=== PATIENT | female | born 1950 | race Caucasian/White ===

== ENCOUNTER 2017-03-04 11:34 | Outpatient (CLI) | payer OTHER ==
--- NOTE | 2017-03-11 06:59 | Mammography Report ---
EXAM: Digital bilateral screening mammogram 03/04/2017. CLINICAL INDICATION: A 66-year-old for screening. COMPARISON: 10/2015, 05/2014. FINDINGS: The breasts again demonstrate scattered fibroglandular densities bilaterally. Punctate, typically benign calcifications are present. No suspicious masses, clustered microcalcifications or regions of architectural distortion are identified. IMPRESSION: Benign findings. RECOMMENDATIONS: Routine annual screening unless otherwise clinically indicated. BIRADS category 2 - Benign findings. STANDARD QUALIFYING STATEMENTS 1. This examination was reviewed with the aid of Computed Aided Detection (CAD). 2. A negative x-ray report should not delay biopsy if a dominant or clinically suspicious mass is present. More than 5% of cancers are not identified by x-ray. 3. Dense breasts may obscure an underlying neoplasm. TD: 03/05/2017 20:01 GULSHAN
== END 2017-03-04 11:35 | disposition home or self-care (01) ==
LOC: DI.N 11:34
PROVIDERS: ATTEND Family Medicine
DX: Z12.31 Encounter for screening mammogram for malignant neoplasm of breast (principal)
CPT/HCPCS: 77067

== ENCOUNTER 2018-01-26 15:30 | Outpatient (CLI) | payer MEDICARE, OTHER | END 2018-01-26 23:59 | disposition home or self-care (01) | LOC: LAB.R 15:30 | PROVIDERS: ATTEND Physician Assistant Medical | DX: R30.0 Dysuria (principal) | CPT/HCPCS: 87077; 87086; 87181 ==

== ENCOUNTER 2018-07-06 13:37 | Outpatient (CLI) | payer MEDICARE, OTHER ==
--- NOTE | 2018-07-06 14:57 | Mammography Report ---
Reason: SCREENING MAMMO Procedure Date: 07/06/2018 Accession Number: [id number] / [id number] Procedure: MGN - Screening Mammo Dig Bilat CPT Code: FULL RESULT: EXAM: Screening Mammo Dig Bilat DATE: 07/06/2018 2:00 PM CLINICAL HISTORY: Screening examination. TECHNIQUE: (B) - Bilateral CC and MLO views were obtained. COMPARISON: 06/25/2016, 05/18/2013 PARENCHYMAL PATTERN: (A) - The breasts demonstrate scattered fibroglandular densities bilaterally. FINDINGS: There are no suspicious masses, calcifications, or areas of distortion. Stable long-standing small sharply marginated benign-appearing mass posterior central right breast of no clinical significance. IMPRESSION: Benign findings. BI-RADS category 2. RECOMMENDATION: (ANNUAL) - Recommend routine annual screening mammography. BI-RADS CATEGORY: (2) - Benign Findings. STANDARD QUALIFYING STATEMENTS: 1. This examination was reviewed with the aid of Computer-Aided Detection (CAD). 2. A negative or benign imaging report should not preclude biopsy if clinically suspicious findings are present. 3. Dense breasts may obscure an underlying neoplasm. 4. This examination was reviewed without the aid of 3D breast imaging (tomosynthesis).
== END 2018-07-06 13:38 | disposition home or self-care (01) ==
LOC: DI.N 13:37
DX: Z12.31 Encounter for screening mammogram for malignant neoplasm of breast (principal)
CPT/HCPCS: 77067

== ENCOUNTER 2019-03-09 08:00 | Outpatient (CLI) | payer MEDICARE, OTHER | END 2019-03-09 23:59 | disposition home or self-care (01) | LOC: LAB.WCP 08:00 | PROVIDERS: ATTEND Physician Assistant | DX: R35.0 Frequency of micturition (principal) | CPT/HCPCS: 81002 ==

== ENCOUNTER 2019-03-09 13:30 | Outpatient (CLI) | payer MEDICARE, OTHER | END 2019-03-09 23:59 | disposition home or self-care (01) | LOC: LAB.R 13:30 | PROVIDERS: ATTEND Physician Assistant | DX: R35.0 Frequency of micturition (principal) | CPT/HCPCS: 87086; 87181 ==

== ENCOUNTER 2019-03-24 15:30 | Outpatient (CLI) | payer MEDICARE, OTHER | END 2019-03-24 23:59 | disposition home or self-care (01) | LOC: LAB.R 15:30 | PROVIDERS: ATTEND Physician Assistant Medical | DX: R35.0 Frequency of micturition (principal) | CPT/HCPCS: 87086 ==

== ENCOUNTER → 2019-10-13 | Outpatient (CLI) | payer MEDICARE, OTHER ==
[2019-10-13 12:05] LABS: BASOPHILS # (AUTO) 0.1 10^3/uL (0.0-0.1); BASOPHILS % (AUTO) 0.9 %; EOSINOPHILS # (AUTO) 0.1 10^3/uL (0.0-0.7); EOSINOPHILS % (AUTO) 2.2 %; HGB - HEMOGLOBIN 13.8 g/dL (12.0-16.0); MEAN CORPUSCULAR HEMOGLOBIN 31.8 pg (27.0-31.0); MEAN CORPUSCULAR HGB CONC 32.8 g/dL (32.0-36.0); MONOCYTES # (AUTO) 0.5 10^3/uL (0.0-1.0); NEUTROPHILS # (AUTO) 3.7 10^3/uL (1.5-6.6); NEUTROPHILS % (AUTO) 57.6 %; PLT - PLATELET COUNT 210 10^3/uL (130-450); RED BLOOD COUNT 4.34 10^6/uL (4.20-5.40); RED CELL DISTRIBUTION WIDTH 11.9 % (12.0-15.0); WHITE BLOOD COUNT 6.5 x10^3/uL (4.8-10.8)
[2019-10-13 12:41] LABS: ALBUMIN 4.7 g/dL (3.2-5.5); ALBUMIN/GLOBULIN RATIO 1.4 (1.0-2.2); ALKALINE PHOSPHATASE 56 IU/L (42-121); ALT ALANINE AMINOTRANSFERASE 25 IU/L (10-60); AST ASPARTATE AMINOTRANSFERASE 23 IU/L (10-42); BILIRUBIN,TOTAL 1.1 mg/dL (0.2-1.0); BUN - BLOOD UREA NITROGEN 23 mg/dL (6-20); CALCIUM 9.2 mg/dL (8.5-10.3); CARBON DIOXIDE - CO2 26 mmol/L (21-32); CHLORIDE 105 mmol/L (101-111); CHOL/HDL RATIO 3.9 (<4.4); CHOLESTEROL 216 mg/dL; CREATININE 0.8 mg/dL (0.4-1.0); GLUCOSE 104 mg/dL (70-100); HDL CHOLESTEROL 56 mg/dL; LDL CHOLESTEROL,CALCULATED 145 mg/dL; LDL/HDL RATIO 2.6 (<4.4); SODIUM 138 mmol/L (135-145); VLDL CHOLESTEROL 15 mg/dL
== END ==
LOC: LAB.WCP 07:44
PROVIDERS: ATTEND Physician Assistant Medical
DX: R73.01 Impaired fasting glucose (principal); E78.5 Hyperlipidemia, unspecified; R03.0 Elevated blood-pressure reading, without diagnosis of hypertension; F41.9 Anxiety disorder, unspecified; E78.1 Pure hyperglyceridemia; E03.9 Hypothyroidism, unspecified
CPT/HCPCS: 36415; 80053; 80061; 81599; 83036; 83721; 84443; 85025

== ENCOUNTER 2020-07-20 08:00 | Outpatient (CLI) | payer MEDICARE, OTHER ==
[2020-07-20 13:02] LABS: ALBUMIN 4.5 g/dL (3.2-5.5); ALBUMIN/GLOBULIN RATIO 1.6 (1.0-2.2); ALKALINE PHOSPHATASE 63 IU/L (42-121); ALT ALANINE AMINOTRANSFERASE 24 IU/L (10-60); AST ASPARTATE AMINOTRANSFERASE 25 IU/L (10-42); BILIRUBIN,TOTAL 1.2 mg/dL (0.2-1.0); BUN - BLOOD UREA NITROGEN 15 mg/dL (6-20); CALCIUM 9.4 mg/dL (8.5-10.3); CARBON DIOXIDE - CO2 27 mmol/L (21-32); CHLORIDE 103 mmol/L (101-111); CHOL/HDL RATIO 4.3 (<4.4); CHOLESTEROL 195 mg/dL; CREATININE 0.8 mg/dL (0.4-1.0); GFR - MDRD 72 (>89); GLUCOSE 105 mg/dL (70-100); HDL CHOLESTEROL 45 mg/dL; LDL CHOLESTEROL,CALCULATED 121 mg/dL; LDL/HDL RATIO 2.7 (<4.4); POTASSIUM 3.9 mmol/L (3.5-5.0); SODIUM 138 mmol/L (135-145); TOTAL PROTEIN 7.3 g/dL (6.7-8.2); TRIGLYCERIDES 143 mg/dL; VLDL CHOLESTEROL 29 mg/dL
[2020-07-20 13:31] LABS: ESTIMATED AVERAGE GLUCOSE 120 mg/dL (70-100); HEMOGLOBIN A1c% 5.8 % (4.27-6.07)
== END 2020-07-20 23:59 | disposition home or self-care (01) ==
LOC: LAB.WCP 08:00
PROVIDERS: ATTEND Physician Assistant Medical
DX: E78.5 Hyperlipidemia, unspecified (principal); R73.01 Impaired fasting glucose
CPT/HCPCS: 36415; 80053; 80061; 83036; 83721

== ENCOUNTER 2020-10-01 14:11 | Outpatient (CLI) | payer MEDICARE, OTHER ==
--- NOTE | 2020-10-02 11:43 | Mammography Report ---
BILATERAL DIGITAL SCREENING MAMMOGRAM 3D/2D: 10/01/2020 CLINICAL: Routine screening. Comparison is made to exams dated: 07/06/2018 mammogram, 03/04/2017 mammogram, 11/15/2015 mammogram, mammogram - [facility], 03/03/2012 ultrasound, and 02/20/2012 ultrasound - [facility]. There are scattered fibroglandular elements in both breasts. There are benign calcifications in both breasts. No significant masses, calcifications, or other findings are seen in either breast. There has been no significant interval change. IMPRESSION: BENIGN There is no mammographic evidence of malignancy. A 1 year screening mammogram is recommended. This exam was interpreted at Station ID: [id number]. NOTE: For mammograms, a report in lay terms will be sent to the patient. Approximately 15% of breast malignancies will not be visualized mammographically. In the management of a palpable breast mass, a negative mammogram must not discourage biopsy of a clinically suspicious lesion. Electronically Signed By: Jordan Stevens M.D. ddabdiel/[email or web address]:10/01/2020 15:43:21 ACR BI-RADS Category 2: Benign Finding(s) 3342F PARENCHYMAL PATTERN: (A) - The breast(s) demonstrate(s) scattered fibroglandular densities. BI-RADS CATEGORY: (2) - 2 RECOMMENDATION: (ANNUAL) - Recommend routine annual screening mammography. [id number] 1 year screening LATERALITY: (B)
== END 2020-10-01 14:12 | disposition home or self-care (01) ==
LOC: DI 14:11
DX: Z12.31 Encounter for screening mammogram for malignant neoplasm of breast (principal)

== ENCOUNTER 2020-10-01 14:16 | Outpatient (CLI) | payer MEDICARE, OTHER ==
--- NOTE | 2020-10-12 08:42 | DEXA Report ---
PROCEDURE: Dexa Spine and/or Hip INDICATIONS: POST MENOPAUSAL TECHNIQUE: Dual energy x-ray absorptiometry (DXA) was performed on a Fastgen System. Regions measur ed are the AP Spine, femoral neck, and if needed forearm. COMPARISON: None. FINDINGS: Lumbar Spine: Bone Mineral Density 1.149 g/cm/cm,T score -0.3, normal Left Hip: Bone Mineral Density 0.832 g/cm/cm,T score -1.4, osteopenia Left Femoral Neck: Bone Mineral Density 0.819 g/cm/cm, T score -1.6, osteopenia (T score greater or equal to -1.0: NORMAL) (T score from -1.1 to -2.4: OSTEOPENIA) (T score less than or equal to -2.5 to: OSTEOPOROSIS) Impression: Osteopenia. Patients with diagnosis of osteoporosis or osteopenia should have regular bone mineral density assess ment. For those eligible for Medicare, routine testing is allowed once every 2 years. Testing frequ ency can be increased for patients who have rapidly progressing disease or for those who are receivin g medical therapy to restore bone mass. Reviewed by: Brit Polanco MD, PhD on 10/01/2020 4:42 PM PDT Approved by: Brit Polanco MD, PhD on 10/01/2020 4:42 PM PDT Station ID: [id number]
== END 2020-10-01 14:17 | disposition home or self-care (01) ==
LOC: DI 14:16
PROVIDERS: ATTEND Physician Assistant Medical
DX: Z78.0 Asymptomatic menopausal state (principal); M85.88 Other specified disorders of bone density and structure, other site

== ENCOUNTER 2022-03-04 11:00 | Outpatient (CLI) | payer MEDICARE, OTHER ==
--- NOTE | 2022-03-05 11:54 | Mammography Report ---
UNILATERAL RIGHT DIGITAL DIAGNOSTIC MAMMOGRAM 3D/2D WITH MEDIOLATERAL OBLIQUE SPOT COMPRESSION: 03/04 CLINICAL: Patient returns today to evaluate a focal asymmetry in the right breast. Comparison is made to exams dated: 02/04/2022 mammogram, 10/01/2020 mammogram, and 07/06/2018 mammogra m - [facility]. There are scattered areas of fibroglandular density in the right breast (category b / 25%-50% glandul ar tissue). There are various sized benign oval shaped masses with a circumscribed margin in the right breast. There is a 1.2 cm oval mass in the right breast at 7 o'clock middle depth 1 cm from the nipple. This is seen in additional views. This is increased in size coma to 2020. No other significant masses or calcifications are seen in the breast. IMPRESSION: INCOMPLETE: NEEDS ADDITIONAL IMAGING EVALUATION The 1.2 cm oval mass in the right breast most likely is a cyst and is indeterminate. An ultrasound i s recommended. There are various sized benign oval shaped masses with a circumscribed margin in the right breast. T his is also seen in the left breast on prior imaging. Based on the Tyrer Cuzick model (a risk assessment model) the patients lifetime risk is 5.0% and her 10 year risk is 3.0%. According to the ACR, ACS, and NCCN guidelines, an annual breast MRI exam nori g with mammogram is recommended if the patients lifetime risk is 20% or greater. This exam was interpreted at Station ID: [id number]. NOTE: For mammograms, a report in lay terms will be sent to the patient. Approximately 15% of breast malignancies will not be visualized mammographically. In the management of a palpable breast mass, a negative mammogram must not discourage biopsy of a clinically suspicious lesion. Electronically Signed By: Juan Carlos Mckeon M.D. lc/:03/04/2022 12:13:05 ACR BI-RADS Category 0: Incomplete 3340F PARENCHYMAL PATTERN: (A) - The breast(s) demonstrate(s) scattered fibroglandular densities. BI-RADS CATEGORY: (0) - 0 Ultrasound [id number] Immediate follow-up LATERALITY: (B)
--- NOTE | 2022-03-05 11:54 | Ultrasound Report ---
LIMITED ULTRASOUND OF RIGHT BREAST: 03/04/2022 CLINICAL: Patient returns today to evaluate focal asymmetries in the right breast. Comparison is made to exams dated: 03/04/2022 mammogram, 02/04/2022 mammogram, 10/01/2020 mammogram, 07/06/2018 mammogram, 03/04/2017 mammogram, and 11/15/2015 mammogram - [facility]. Color flow and real-time ultrasound of the right breast 6-7 o'clock region were performed. Aguilar scal e images of the real-time examination were reviewed. There are various sized benign oval shaped masses with a circumscribed margin in the right breast. There is a benign 1.1 cm x 1.1 cm x 0.6 cm cyst in the right breast at 7 o'clock middle depth 1 cm fr om the nipple, corresponding to mammogram. Other smaller cysts are present. IMPRESSION: BENIGN There is no sonographic evidence of malignancy. The 1.1 cm x 1.1 cm x 0.6 cm cyst in the right breast is benign. Return to annual mammogram screening schedule is recommended. This exam was interpreted at Station ID: [id number]. Electronically Signed By: Juan Carlos Mckeon M.D. lc/:03/04/2022 12:19:24 Ultrasound BI-RADS: 2 Benign BI-RADS CATEGORY: (2) - 2 Mammogram [id number] return to screening LATERALITY: (B)
== END 2022-03-04 11:01 | disposition home or self-care (01) ==
LOC: DI 11:00
PROVIDERS: ATTEND Family Medicine
DX: R92.8 Other abnormal and inconclusive findings on diagnostic imaging of breast (principal); N60.01 Solitary cyst of right breast

== ENCOUNTER 2022-03-25 10:18 | Outpatient (CLI) | payer MEDICARE, OTHER ==
[2022-03-25 12:57] LABS: CALCIUM 9.2 mg/dL (8.5-10.3); CREATININE 0.7 mg/dL (0.4-1.0); POTASSIUM 3.9 mmol/L (3.5-5.0)
[2022-03-25 14:05] LABS: BILIRUBIN,URINE NEGATIVE (NEGATIVE); GLUCOSE, URINE (UA) NEGATIVE (NEGATIVE); KETONES,URINE (UA) NEGATIVE (NEGATIVE); LEUKOCYTE ESTERASE, URINE NEGATIVE (NEGATIVE); NITRITE,URINE NEGATIVE (NEGATIVE); OCCULT BLOOD,URINE TRACE-INTA (NEGATIVE); PROTEIN,URINE NEGATIVE (NEGATIVE); UROBILINOGEN,URINE 0.2 (NORMAL) E.U./dL (NORMAL)
[2022-03-25 14:06] LABS: CLARITY,URINE CLEAR (CLEAR)
[2022-03-25 14:33] LABS: BACTERIA,URINE Few /HPF (None Seen); RBC,URINE 0-5 /HPF (0-5); SQUAMOUS EPITHELIAL CELL,UR RARE Squamous (<= Few); WBC,URINE 0-3 /HPF (0-5)
== END 2022-03-25 10:19 | disposition home or self-care (01) ==
LOC: LAB.N 10:18
PROVIDERS: ATTEND Physician Assistant Medical
DX: N18.9 Chronic kidney disease, unspecified (principal)
CPT/HCPCS: 36415; 80048; 81001; 87086

== ENCOUNTER 2022-11-25 10:09 | Outpatient (CLI) | payer MEDICARE, OTHER ==
[2022-11-25 12:08] LABS: BASOPHILS # (AUTO) 0.1 10^3/uL (0.0-0.1); BASOPHILS % (AUTO) 0.9 %; EOSINOPHILS # (AUTO) 0.1 10^3/uL (0.0-0.7); EOSINOPHILS % (AUTO) 1.4 %; HCT - HEMATOCRIT 43.9 % (37.0-47.0); HGB - HEMOGLOBIN 14.4 g/dL (12.0-16.0); LYMPHOCYTES # (AUTO) 1.8 10^3/uL (1.5-3.5); LYMPHOCYTES % (AUTO) 26.3 %; MEAN CORPUSCULAR HEMOGLOBIN 31.6 pg (27.0-31.0); MEAN CORPUSCULAR HGB CONC 32.8 g/dL (32.0-36.0); MEAN CORPUSCULAR VOLUME 96.3 fL (81.0-99.0); MEAN PLATELET VOLUME 11.6 fL (7.9-10.8); MONOCYTES # (AUTO) 0.5 10^3/uL (0.0-1.0); MONOCYTES % (AUTO) 6.6 %; NEUTROPHILS # (AUTO) 4.5 10^3/uL (1.5-6.6); NEUTROPHILS % (AUTO) 64.5 %; PLT - PLATELET COUNT 217 10^3/uL (130-450); RED BLOOD COUNT 4.56 10^6/uL (4.20-5.40); RED CELL DISTRIBUTION WIDTH 11.9 % (12.0-15.0); WHITE BLOOD COUNT 6.9 x10^3/uL (4.8-10.8)
[2022-11-25 12:56] LABS: ALBUMIN 4.7 g/dL (3.2-5.5); ALBUMIN/GLOBULIN RATIO 1.7 (1.0-2.2); ALKALINE PHOSPHATASE 75 IU/L (42-121); ALT ALANINE AMINOTRANSFERASE 34 IU/L (10-60); AST ASPARTATE AMINOTRANSFERASE 27 IU/L (10-42); BILIRUBIN,TOTAL 0.8 mg/dL (0.2-1.0); BUN - BLOOD UREA NITROGEN 16 mg/dL (6-20); CALCIUM 9.9 mg/dL (8.5-10.3); CARBON DIOXIDE - CO2 29 mmol/L (21-32); CHLORIDE 104 mmol/L (101-111); CHOL/HDL RATIO 3.7 (<4.4); CHOLESTEROL 187 mg/dL; CREATININE 0.7 mg/dL (0.6-1.3); GFR - MDRD 83 (>89); GLUCOSE 113 mg/dL (74-104); HDL CHOLESTEROL 51 mg/dL; LDL CHOLESTEROL,CALCULATED 103 mg/dL; POTASSIUM 4.1 mmol/L (3.5-4.5); SODIUM 137 mmol/L (135-145); TOTAL PROTEIN 7.4 g/dL (6.4-8.9); TRIGLYCERIDES 166 mg/dL (48-352); VLDL CHOLESTEROL 33 mg/dL
== END 2022-11-25 10:10 | disposition home or self-care (01) ==
LOC: LAB.N 10:09
PROVIDERS: ATTEND Physician Assistant Medical
DX: E78.5 Hyperlipidemia, unspecified (principal); R03.0 Elevated blood-pressure reading, without diagnosis of hypertension
CPT/HCPCS: 36415; 80053; 80061; 83721; 85025

== ENCOUNTER 2023-03-09 12:30 | Outpatient (CLI) | payer MEDICARE, OTHER ==
--- NOTE | 2023-03-10 08:48 | Mammography Report ---
BILATERAL DIGITAL SCREENING MAMMOGRAM 3D/2D: 03/09/2023 CLINICAL: Routine screening. Comparison is made to exams dated: 03/04/2022 ultrasound, 03/04/2022 mammogram, 02/04/2022 mammogram , 10/01/2020 mammogram, 07/06/2018 mammogram, and 03/04/2017 mammogram - [facility]. There are scattered areas of fibroglandular density in both breasts (category b / 25%-50% glandular t issue). No significant masses, calcifications, or other findings are seen in either breast. There has been no significant interval change. IMPRESSION: NEGATIVE There is no mammographic evidence of malignancy. A 1 year screening mammogram is recommended. Based on the Tyrer Cuzick model (a risk assessment model) the patients lifetime risk is 4.8% and her 10 year risk is 3.0%. According to the ACR, ACS, and NCCN guidelines, an annual breast MRI exam nori g with mammogram is recommended if the patients lifetime risk is 20% or greater. This exam was interpreted at Station ID: [id number]. NOTE: For mammograms, a report in lay terms will be sent to the patient. Approximately 15% of breast malignancies will not be visualized mammographically. In the management of a palpable breast mass, a negative mammogram must not discourage biopsy of a clinically suspicious lesion. Electronically Signed By: Magda Snow M.D., PH.D eb/carla:03/09/2023 21:39:44 letter sent: No_Letter ACR BI-RADS Category 1: Negative 3341F PARENCHYMAL PATTERN: (A) - The breast(s) demonstrate(s) scattered fibroglandular densities. BI-RADS CATEGORY: (1) - 1 Mammogram [id number] 1 year screening LATERALITY: (B)
== END 2023-03-09 12:31 | disposition home or self-care (01) ==
LOC: DI.N 12:30
DX: Z12.31 Encounter for screening mammogram for malignant neoplasm of breast (principal); R92.323 Mammographic fibroglandular density, bilateral breasts